=== PATIENT | female | born 1980 | race Caucasian/White ===

== ENCOUNTER 2017-02-18 16:38 | Inpatient (IN) | payer BC ==
[2017-02-18 20:34] LABS: HEMATOCRIT 20.6 % (36.0-47.0); MEAN CORPUSCULAR HEMOGLOBIN 15.3 pg (27.0-33.0); MEAN CORPUSCULAR HGB CONC 25.2 g/dl (32.0-36.5); MEAN CORPUSCULAR VOLUME 60.8 fl (80.0-96.0); PLATELET COUNT, AUTOMATED 393 10^3/uL (150-450); RED BLOOD COUNT 3.39 10^6/uL (4.00-5.40); RED CELL DISTRIBUTION WIDTH 21.9 % (11.5-14.5)
[2017-02-18 20:38] LABS: HEMOGLOBIN 5.2 g/dl (12.0-16.0); PLT DIST POS FLAG
[2017-02-18 21:29] LABS: RETIC HEMOGLOBIN EQUIVALENT 13.9 pg (24-36); RETICULOCYTE # 47.9 10^9/L (17-77); RETICULOCYTE % 1.4 % (0.5-1.5)
[2017-02-18 22:00] LABS: LDH LACTATE DEHYDROGENASE 227 U/L (84-246)
[2017-02-18] MEDS: PARoxetine 20 MG TAB PO (23:02)
[2017-02-18] MEDS: FERROUS SULFATE 325MG TAB PO (23:02)
[2017-02-18] MEDS: CYANOCOBALAMIN 1,000 MCG/ML VIAL (J3420) IM (23:02)
[2017-02-19 00:50] LABS: IMMEDIATE SPIN CROSSMATCH 1 3
[2017-02-19] MEDS: diphenhydrAMINE INJ 50MG/ML VIAL (J1200) IV (01:24)
[2017-02-19] MEDS: ACETAMINOPHEN 500 MG TAB PO (03:06)
[2017-02-19 06:50] LABS: HEMATOCRIT 22.1 % (36.0-47.0); MEAN CORPUSCULAR HGB CONC 27.6 g/dl (32.0-36.5); MEAN CORPUSCULAR VOLUME 65.4 fl (80.0-96.0); RED BLOOD COUNT 3.38 10^6/uL (4.00-5.40); RED CELL DISTRIBUTION WIDTH 26.2 % (11.5-14.5); WHITE BLOOD COUNT 4.3 10^3/uL (4.0-10.0)
[2017-02-19 06:53] LABS: HEMOGLOBIN 6.1 g/dl (12.0-16.0); PLATELET COUNT, AUTOMATED 286 10^3/uL (150-450)
[2017-02-19 07:10] LABS: ANION GAP 5 MEQ/L (8-16); BLOOD UREA NITROGEN 16 MG/DL (7-18); CALCIUM LEVEL 8.1 MG/DL (8.5-10.1); CARBON DIOXIDE LEVEL 28 MEQ/L (21-32); CHLORIDE LEVEL 112 MEQ/L (98-107); CREATININE FOR GFR 0.61 MG/DL (0.55-1.02); GLOMERULAR FILTRATION RATE > 60.0 (>60); GLUCOSE, FASTING 87 MG/DL (70-105); POTASSIUM SERUM 4.3 MEQ/L (3.5-5.1); SODIUM LEVEL 145 MEQ/L (136-145)
[2017-02-19 15:08] LABS: IMMEDIATE SPIN CROSSMATCH 1 2
[2017-02-19 19:16] LABS: HEMATOCRIT 26.8 % (36.0-47.0); HEMOGLOBIN 7.5 g/dl (12.0-16.0); MEAN CORPUSCULAR HEMOGLOBIN 19.3 pg (27.0-33.0); MEAN CORPUSCULAR VOLUME 69.1 fl (80.0-96.0); PLATELET COUNT, AUTOMATED 278 10^3/uL (150-450); RED BLOOD COUNT 3.88 10^6/uL (4.00-5.40); RED CELL DISTRIBUTION WIDTH 27.2 % (11.5-14.5)
[2017-02-19] MEDS: PARoxetine 20 MG TAB PO (20:50)
[2017-02-19 21:32] LABS: IMMEDIATE SPIN CROSSMATCH 1 1
[2017-02-20 06:48] LABS: HEMATOCRIT 27.4 % (36.0-47.0); HEMOGLOBIN 7.9 g/dl (12.0-16.0); MEAN CORPUSCULAR HGB CONC 28.8 g/dl (32.0-36.5); MEAN CORPUSCULAR VOLUME 69.4 fl (80.0-96.0); PLATELET COUNT, AUTOMATED 261 10^3/uL (150-450); RED BLOOD COUNT 3.95 10^6/uL (4.00-5.40); RED CELL DISTRIBUTION WIDTH 26.5 % (11.5-14.5); WHITE BLOOD COUNT 4.7 10^3/uL (4.0-10.0)
[2017-02-20 07:03] LABS: ANION GAP 5 MEQ/L (8-16); BLOOD UREA NITROGEN 16 MG/DL (7-18); CALCIUM LEVEL 8.1 MG/DL (8.5-10.1); CARBON DIOXIDE LEVEL 28 MEQ/L (21-32); CHLORIDE LEVEL 112 MEQ/L (98-107); GLOMERULAR FILTRATION RATE > 60.0 (>60); GLUCOSE, FASTING 93 MG/DL (70-105); SODIUM LEVEL 145 MEQ/L (136-145)
[2017-02-20] MEDS: FERROUS SULFATE 325MG TAB PO (08:01)
[2017-02-20 08:06] LABS: HAPTOGLOBIN 104 mg/dL (34-200)
[2017-02-20 09:28] LABS: ALBUMIN 3.6 GM/DL (3.2-5.2); ALBUMIN/GLOBULIN RATIO 1.33 (1.00-1.93); ALKALINE PHOSPHATASE 43 U/L (45-117); ALT/SGPT 22 U/L (12-78); AST/SGOT 20 U/L (7-37); BILIRUBIN,DIRECT 0.1 MG/DL (0.0-0.2); BILIRUBIN,TOTAL 0.5 MG/DL (0.2-1.0); TOTAL PROTEIN 6.3 GM/DL (6.4-8.2)
[2017-02-20] MEDS: CYANOCOBALAMIN 1,000 MCG/ML VIAL (J3420) IM (09:38)
[2017-02-20 10:35] LABS: IMMEDIATE SPIN CROSSMATCH 1 1
[2017-02-20] MEDS: IRON SUCROSE 200 MG in NS 100 ML IV (13:09)
== END 2017-02-20 15:28 | disposition home or self-care (01) | DRG 663 ==
LOC: M ED 16:38 → M ED INP 20:11 → M MSPAV 21:37
PROVIDERS: Internal Medicine
PROC: 30233N1 Transfusion of Nonautologous Red Blood Cells into Peripheral Vein, Percutaneous Approach (ICD-10-PCS; principal; 2017-02-18)
DX: D50.9 Iron deficiency anemia, unspecified (principal); E53.8 Deficiency of other specified B group vitamins; G60.0 Hereditary motor and sensory neuropathy; E55.9 Vitamin D deficiency, unspecified; N93.8 Other specified abnormal uterine and vaginal bleeding; Z79.899 Other long term (current) drug therapy; F17.210 Nicotine dependence, cigarettes, uncomplicated; Z91.19 Patient's noncompliance with other medical treatment and regimen; N92.0 Excessive and frequent menstruation with regular cycle

== ENCOUNTER → 2017-02-18 | Outpatient (REF) | payer BC ==
[2017-02-18 12:46] LABS: BASO % 1.1 % (0.0-1.0); EOS # 0.2 10^3/uL (0.0-0.50); HEMATOCRIT 18.8 % (36.0-47.0); IMMATURE GRANULOCYTE % 0.4 % (0-0); LYMPH # 0.8 10^3/uL (1.5-4.5); LYMPH % 30.6 % (24.0-44.0); MEAN CORPUSCULAR HEMOGLOBIN 15.3 pg (27.0-33.0); MEAN CORPUSCULAR VOLUME 61.2 fl (80.0-96.0); MONO # 0.3 10^3/uL (0.0-0.8); MONO % 10.3 % (0.0-5.0); NEUTROPHILS # 1.4 10^3/uL (1.8-7.7); NEUTROPHILS % 50.6 % (36.0-66.0); PLATELET COUNT, AUTOMATED 323 10^3/uL (150-450); RED BLOOD COUNT 3.07 10^6/uL (4.00-5.40); RED CELL DISTRIBUTION WIDTH 21.7 % (11.5-14.5); WHITE BLOOD COUNT 2.7 10^3/uL (4.0-10.0)
[2017-02-18 13:05] LABS: FOLATE 22.7 NG/ML; TOTAL 25(OH) VITAMIN D 18.8 NG/ML (30.0-100.0); VITAMIN B12 LEVEL 229 PG/ML
[2017-02-18 13:10] LABS: ALBUMIN 3.9 GM/DL (3.2-5.2); ALBUMIN/GLOBULIN RATIO 1.34 (1.00-1.93); ALKALINE PHOSPHATASE 44 U/L (45-117); ALT/SGPT 22 U/L (12-78); ANION GAP 6 MEQ/L (8-16); AST/SGOT 19 U/L (7-37); BILIRUBIN,TOTAL 0.2 MG/DL (0.2-1.0); BLOOD UREA NITROGEN 20 MG/DL (7-18); CALCIUM LEVEL 8.2 MG/DL (8.5-10.1); CARBON DIOXIDE LEVEL 28 MEQ/L (21-32); CHLORIDE LEVEL 106 MEQ/L (98-107); CHOLESTEROL LEVEL 148 MG/DL (<200); CHOLESTEROL RISK RATIO 2.208 (<5); CREATININE FOR GFR 0.57 MG/DL (0.55-1.02); FERRITIN 1 NG/ML (8-252); FREE T4 0.79 NG/DL (0.76-1.46); GLOMERULAR FILTRATION RATE > 60.0 (>60); GLUCOSE, FASTING 79 MG/DL (70-105); HDL CHOLESTEROL 67 MG/DL (>40); IRON (FE) 13 UG/DL (50-170); LDL CHOLESTEROL 68.4 MG/DL (<100); NON-HDL-C 81 MG/DL; PERCENT SATURATION 2.8 % (13.2-45.0); SODIUM LEVEL 140 MEQ/L (136-145); TOTAL IRON BINDING CAPACITY 462 UG/DL (250-450); TOTAL PROTEIN 6.8 GM/DL (6.4-8.2); TRIGLYCERIDES LEVEL 63 MG/DL (<150)
[2017-02-18 13:13] LABS: HEMOGLOBIN 4.7 g/dl (12.0-16.0); PLT DIST POS FLAG; POSITIVE MORPH POS FLAG
[2017-02-18 13:16] LABS: HEMATOCRIT 18.8 % (36.0-47.0)
[2017-02-20 11:37] LABS: PRETREATED FOLATE FOR RBCFOL 11.2 NG/ML; RBC FOLATE 1251.1 NG/ML (280-791)
[2017-02-23 14:11] LABS: VITAMIN B1 LEVEL WHOLE BLOOD 122.4 nmol/L (66.5-200.0)
== END ==
LOC: M LABDRWAD 12:12
DX: Z98.84 Bariatric surgery status (principal)
CPT/HCPCS: 82746

== ENCOUNTER → 2017-03-05 | Outpatient (REF) | payer BC ==
[2017-03-05 19:11] LABS: BASO # 0.1 10^3/uL (0.0-0.2); BASO % 1.3 % (0.0-1.0); EOS # 0.2 10^3/uL (0.0-0.50); EOS % 4.3 % (0.0-3.0); HEMATOCRIT 38.7 % (36.0-47.0); HEMOGLOBIN 11.1 g/dl (12.0-16.0); IMMATURE GRANULOCYTE % 0.3 % (0-0); LYMPH # 0.9 10^3/uL (1.5-4.5); LYMPH % 21.9 % (24.0-44.0); MEAN CORPUSCULAR HEMOGLOBIN 22.5 pg (27.0-33.0); MEAN CORPUSCULAR HGB CONC 28.7 g/dl (32.0-36.5); MEAN CORPUSCULAR VOLUME 78.5 fl (80.0-96.0); MONO # 0.8 10^3/uL (0.0-0.8); MONO % 19.6 % (0.0-5.0); NEUTROPHILS # 2.1 10^3/uL (1.8-7.7); NEUTROPHILS % 52.6 % (36.0-66.0); PLATELET COUNT, AUTOMATED 174 10^3/uL (150-450); RED BLOOD COUNT 4.93 10^6/uL (4.00-5.40)
[2017-03-05 19:26] LABS: POSITIVE MORPH POS FLAG
[2017-03-05 19:27] LABS: ADD MORPHOLOGY? YES; PLATELET ESTIMATE NORMAL (NORMAL)
[2017-03-05 19:28] LABS: OVALOCYTES 2+
[2017-03-05 19:29] LABS: TEAR DROP CELLS 1+
[2017-03-05 19:30] LABS: ANISOCYTOSIS 2+; HYPOCHROMASIA 1+
== END ==
LOC: M LABDRWAD 18:56
DX: D50.9 Iron deficiency anemia, unspecified (principal)
CPT/HCPCS: 85025

== ENCOUNTER → 2017-03-06 | Outpatient (REF) | payer BC ==
[2017-03-06 21:36] LABS: BASO % 1.1 % (0.0-1.0); EOS # 0.2 10^3/uL (0.0-0.50); EOS % 7.6 % (0.0-3.0); HEMATOCRIT 39.4 % (36.0-47.0); HEMOGLOBIN 11.4 g/dl (12.0-16.0); LYMPH % 34.5 % (24.0-44.0); MEAN CORPUSCULAR HEMOGLOBIN 22.9 pg (27.0-33.0); MEAN CORPUSCULAR HGB CONC 28.9 g/dl (32.0-36.5); MEAN CORPUSCULAR VOLUME 79.1 fl (80.0-96.0); MONO # 0.3 10^3/uL (0.0-0.8); NEUTROPHILS # 1.2 10^3/uL (1.8-7.7); NEUTROPHILS % 44.8 % (36.0-66.0); PLATELET COUNT, AUTOMATED 201 10^3/uL (150-450); RED BLOOD COUNT 4.98 10^6/uL (4.00-5.40); WHITE BLOOD COUNT 2.8 10^3/uL (4.0-10.0)
[2017-03-06 21:50] LABS: BLOOD UREA NITROGEN 18 MG/DL (7-18)
[2017-03-06 21:50] LABS: C REACTIVE PROTEIN QUANTITATIV < 0.30 MG/DL (0.00-0.30); CREATININE FOR GFR 0.68 MG/DL (0.55-1.02); GLOMERULAR FILTRATION RATE > 60.0 (>60); RHEUMATOID FACTOR QUANT < 10.0 IU/ML (0-15.0)
[2017-03-06 21:53] LABS: POSITIVE MORPH POS FLAG
[2017-03-06 21:55] LABS: ADD MORPHOLOGY? YES
[2017-03-06 22:09] LABS: ERYTHROCYTE SEDIMENTATION RATE 7 mm/hr (0-20)
[2017-03-06 22:24] LABS: ANISOCYTOSIS 2+; HYPOCHROMASIA 1+; OVALOCYTES 1+; PLATELET ESTIMATE NORMAL (NORMAL); TEAR DROP CELLS 1+
[2017-03-11 00:06] LABS: ANTINUCLEAR ANTIBODIES DIRECT Negative (Negative); Lyme Disease IgG/IgM Antibodie <0.91 ISR (0.00-0.90); Lyme Disease IgM Ab Quantitati <0.80 index (0.00-0.79)
== END ==
LOC: M LAB 03-07 12:31
DX: R22.42 Localized swelling, mass and lump, left lower limb (principal)
CPT/HCPCS: 82565

== ENCOUNTER → 2017-03-16 | Outpatient (CLI) | payer BC | LOC: M RAD 10:22 | DX: R22.42 Localized swelling, mass and lump, left lower limb (principal) ==

== ENCOUNTER → 2017-03-19 | Outpatient (CLI) | payer BC ==
[~2017-03-19] MED LIST: PROHANCE 279.3MG/ML 15ML VIAL (A9576) As Ordered; PROHANCE 279.3MG/ML 5ML VIAL (A9576) As Ordered
== END ==
LOC: M RAD 07:44
DX: M62.561 Muscle wasting and atrophy, not elsewhere classified, right lower leg (principal); M62.562 Muscle wasting and atrophy, not elsewhere classified, left lower leg; M17.11 Unilateral primary osteoarthritis, right knee; M25.461 Effusion, right knee; M25.462 Effusion, left knee; R60.0 Localized edema
CPT/HCPCS: A9576

== ENCOUNTER → 2017-03-27 | Day surgery (SDC) | payer BC ==
[~2017-03-27] MED LIST changes: +HYDROmorphone HCL 1 MG/ML SYRINGE (J1170) IV; +LIDOCAINE 2% INJ 100 MG/5 ML SDV (FOR ANES.) As Ordered; +LR 1,000 ML IV; +METOCLOPRAMIDE INJ 10MG/2ML VIAL (J2765) As Ordered; +MIDAZOLAM INJ 2 MG/2 ML VIAL (J2250) As Ordered; +ONDANSETRON 4MG/2ML VIAL (J2405) As Ordered; +PERCOCET 5MG/325MG TAB PO; -PROHANCE 279.3MG/ML 15ML VIAL (A9576) As Ordered; -PROHANCE 279.3MG/ML 5ML VIAL (A9576) As Ordered; +PROPOFOL 200 MG/20 ML VIAL As Ordered; +dexameTHASONE 4 MG/ML 1ML VIAL (J1100) As Ordered; +fentaNYL 100 MCG/2 ML INJECTION (J3010) As Ordered; +fentaNYL 100 MCG/2 ML INJECTION (J3010) IV
[2017-03-27 09:13] LABS: HEMATOCRIT 36.4 % (36.0-47.0); HEMOGLOBIN 11.1 g/dl (12.0-16.0); MEAN CORPUSCULAR HEMOGLOBIN 25.2 pg (27.0-33.0); MEAN CORPUSCULAR HGB CONC 30.5 g/dl (32.0-36.5); MEAN CORPUSCULAR VOLUME 82.5 fl (80.0-96.0); PLATELET COUNT, AUTOMATED 208 10^3/uL (150-450); RED BLOOD COUNT 4.41 10^6/uL (4.00-5.40); WHITE BLOOD COUNT 4.9 10^3/uL (4.0-10.0)
[2017-03-27 09:18] LABS: POSITIVE MORPH POS FLAG
[2017-03-27] MEDS: LR 1,000 ML IV ×2 (09:24)
[2017-03-27 09:32] LABS: CONTROL LINE HCG INT CTR LINE PRESENT; HCG, SERUM QUALITATIVE NEGATIVE (NEGATIVE)
[2017-03-27 09:37] LABS: ANION GAP 2 MEQ/L (8-16); BLOOD UREA NITROGEN 18 MG/DL (7-18); CALCIUM LEVEL 8.5 MG/DL (8.5-10.1); CARBON DIOXIDE LEVEL 32 MEQ/L (21-32); CHLORIDE LEVEL 109 MEQ/L (98-107); CREATININE FOR GFR 0.62 MG/DL (0.55-1.30); GLOMERULAR FILTRATION RATE > 60.0 (>60); GLUCOSE, FASTING 88 MG/DL (70-100); POTASSIUM SERUM 4.1 MEQ/L (3.5-5.1); SODIUM LEVEL 143 MEQ/L (136-145)
[2017-03-27] MEDS: ACETAMINOPHEN 650 MG SUPP PR ×2 (10:20)
[2017-03-27] MEDS: ACETAMINOPHEN 650 MG SUPP As Ordered ×2 (10:52)
[2017-03-27] MEDS: ONDANSETRON 4MG/2ML VIAL (J2405) IV ×2 (11:17)
[2017-03-27] MEDS: PERCOCET 5MG/325MG TAB PO ×2 (11:17)
== END | disposition home or self-care (01) ==
LOC: M SDC 08:49
DX: N92.0 Excessive and frequent menstruation with regular cycle (principal); D64.9 Anemia, unspecified; F32.9 Major depressive disorder, single episode, unspecified; Z87.891 Personal history of nicotine dependence; Z98.84 Bariatric surgery status
CPT/HCPCS: 58563

== ENCOUNTER → 2018-05-15 | Outpatient (REF) | payer BC ==
[~2018-05-15] MED LIST changes: +B121000T PO; +COLA100C5 PO; +FERR1TAB8 PO; +FOLI1TAB11 PO; -HYDROmorphone HCL 1 MG/ML SYRINGE (J1170) IV; -LIDOCAINE 2% INJ 100 MG/5 ML SDV (FOR ANES.) As Ordered; -LR 1,000 ML IV; -METOCLOPRAMIDE INJ 10MG/2ML VIAL (J2765) As Ordered; -MIDAZOLAM INJ 2 MG/2 ML VIAL (J2250) As Ordered; +MOTRIN 800 MG PO; -ONDANSETRON 4MG/2ML VIAL (J2405) As Ordered; +PAXI10TA12 PO; +PAXI40TA10 PO; +PERC5TAB12 PO; -PERCOCET 5MG/325MG TAB PO; +PERCOCET PO; -PROPOFOL 200 MG/20 ML VIAL As Ordered; +TRAN650T PO; +VITA500C24 PO; +VITAPRTA PO; -dexameTHASONE 4 MG/ML 1ML VIAL (J1100) As Ordered; -fentaNYL 100 MCG/2 ML INJECTION (J3010) As Ordered; -fentaNYL 100 MCG/2 ML INJECTION (J3010) IV
[2018-05-15 19:39] LABS: EOS # 0.2 10^3/uL (0.0-0.50); EOS % 5.3 % (0.0-3.0); HEMATOCRIT 39.5 % (36.0-47.0); HEMOGLOBIN 12.8 g/dl (12.0-15.5); LYMPH # 1.1 10^3/uL (1.5-4.5); LYMPH % 28.5 % (24.0-44.0); MEAN CORPUSCULAR HEMOGLOBIN 30.5 pg (27.0-33.0); MEAN CORPUSCULAR HGB CONC 32.4 g/dl (32.0-36.5); MEAN CORPUSCULAR VOLUME 94.3 fl (80.0-96.0); MONO # 0.3 10^3/uL (0.0-0.8); MONO % 8.5 % (0.0-5.0); NEUTROPHILS # 2.3 10^3/uL (1.8-7.7); NEUTROPHILS % 56.7 % (36.0-66.0); PLATELET COUNT, AUTOMATED 216 10^3/uL (150-450); RED BLOOD COUNT 4.19 10^6/uL (4.00-5.40)
[2018-05-15 19:48] LABS: ALBUMIN 3.8 GM/DL (3.2-5.2); ALT/SGPT 34 U/L (12-78); BILIRUBIN,TOTAL 0.4 MG/DL (0.2-1.0); BLOOD UREA NITROGEN 17 MG/DL (7-18); CALCIUM LEVEL 8.2 MG/DL (8.5-10.1); CARBON DIOXIDE LEVEL 28 MEQ/L (21-32); CHLORIDE LEVEL 109 MEQ/L (98-107); CHOLESTEROL LEVEL 143 MG/DL (<200); CHOLESTEROL RISK RATIO 2.423 (<5); CREATININE FOR GFR 0.62 MG/DL (0.55-1.30); FERRITIN 11 NG/ML (8-252); GLOMERULAR FILTRATION RATE > 60.0 (>60); GLUCOSE, FASTING 82 MG/DL (70-100); HDL CHOLESTEROL 59 MG/DL (>40); IRON (FE) 97 UG/DL (50-170); LDL CHOLESTEROL 74 MG/DL (<100); NON-HDL-C 84 MG/DL; PERCENT SATURATION 31.8 % (13.2-45.0); POTASSIUM SERUM 4.1 MEQ/L (3.5-5.1); SODIUM LEVEL 143 MEQ/L (136-145); TOTAL IRON BINDING CAPACITY 305 UG/DL (250-450); TOTAL PROTEIN 6.8 GM/DL (6.4-8.2); TRIGLYCERIDES LEVEL 48 MG/DL (<150)
[2018-05-17 09:27] LABS: TOTAL 25(OH) VITAMIN D 25.1 NG/ML (30.0-100.0)
[2018-05-17 09:28] LABS: FOLATE 15.4 NG/ML
[2018-05-18 14:13] LABS: VITAMIN B12 LEVEL 240 PG/ML
[2018-05-21 00:07] LABS: VITAMIN A, RETINOL LEVEL 31.9 ug/dL (18.9-57.3); VITAMIN B1 LEVEL WHOLE BLOOD 142.7 nmol/L (66.5-200.0)
== END ==
LOC: M LABDRWAD 09:22
PROVIDERS: ATTEND Physician Assistant Medical
DX: D50.9 Iron deficiency anemia, unspecified (principal); Z98.84 Bariatric surgery status; E55.9 Vitamin D deficiency, unspecified

== ENCOUNTER → 2018-06-09 | Outpatient (REF) | payer BC ==
[2018-06-09 20:30] LABS: FREE T4 0.73 NG/DL (0.76-1.46); THYROID STIMULATING HORMONE 2.37 uIU/ML (0.358-3.740)
== END ==
LOC: M LAB REF 19:16 → M LABDRWAD 19:16
PROVIDERS: ATTEND Physician Assistant Medical
DX: R63.5 Abnormal weight gain (principal)

== ENCOUNTER → 2018-07-13 | Outpatient (CLI) | payer BC ==
[~2018-07-13] MED LIST changes: +GASTROGRAFIN SOLUTION 30ML (Q9963) As Ordered ONE; +ISOVUE-370 76% 100ML VIAL (Q9967) As Ordered ONE
--- NOTE | 2018-07-13 15:21 | REP ---
CT abdomen with IV and oral contrast: History: Abnormal finding on PET-CT. Question bowel. History of bariatric surgery. Weight gain. Gastroesophageal reflux disease. CT contrast dose: 75 ml of intravenous Isovue [address] findings: Preliminary digital crown attacher radiograph is unremarkable. The lung bases are clear on axial CT images. Gastric bypass sutures are visible in the left upper abdomen. No focal hepatic or splenic lesion is seen. No abnormalities noted in the gallbladder or pancreas. There is a tiny accessory splenule. No adrenal abnormality is observed on either side. The kidneys enhance symmetrically and are morphologically intact. No retroperitoneal mass or adenopathy is observed. Small and large intestinal bowel loops are unremarkable in the abdomen and pelvis. There is no evidence of free air, pneumatosis, or mural thickening. No abdominal wall defect is observed. No retroperitoneal mass or adenopathy is observed. No vascular abnormality is seen. Bone window settings show no bony destructive lesion. Impression: Unremarkable CT study of the abdomen with IV and oral contrast. The patient status post gastric bypass procedure. Electronically Signed by Merlin Ellis MD 07/13/2018 04:18 P
== END ==
LOC: M RAD 12:05
PROVIDERS: ATTEND Physician Assistant
DX: R63.5 Abnormal weight gain (principal); K21.9 Gastro-esophageal reflux disease without esophagitis; Z98.84 Bariatric surgery status
CPT/HCPCS: 74160; Q9963; Q9967

== ENCOUNTER → 2018-08-04 | Outpatient (CLI) | payer BC ==
[~2018-08-04] MED LIST changes: -GASTROGRAFIN SOLUTION 30ML (Q9963) As Ordered ONE; -ISOVUE-370 76% 100ML VIAL (Q9967) As Ordered ONE
--- NOTE | 2018-08-04 10:22 | REP ---
Chest x-ray: Two views. History: Necrobiosis lipoidica. Comparison study: February 26, 2007. Findings: The lungs are well inflated and free of infiltrate. The pleural angles are sharp. The heart size is normal. Pulmonary vasculature is not increased. No significant bony abnormality is seen. There are surgical clips in the left upper quadrant. Impression: Negative chest x-ray. Electronically Signed by Merlin Ellis MD 08/04/2018 10:13 A
== END ==
LOC: M ADAMS 08:00
PROVIDERS: ATTEND Nurse Practitioner Family
DX: L92.1 Necrobiosis lipoidica, not elsewhere classified (principal)

== ENCOUNTER → 2018-08-04 | Outpatient (CLI) | payer BC ==
[2018-08-04 13:26] LABS: HEMOGLOBIN A1c 5.3 %
== END ==
LOC: M LABDRWAD 08:21
PROVIDERS: ATTEND Nurse Practitioner Family
DX: L92.1 Necrobiosis lipoidica, not elsewhere classified (principal)

== ENCOUNTER 2018-10-25 00:30 | Emergency (ER) | payer BC ==
[~2018-10-25] VITALS: Ht 157.5 cm; Wt 97.3 kg
[2018-10-25] MEDS ORDERED: PROTPAK PO (00:49)
[2018-10-25] MEDS: NS 1,000 ML IV ONE (01:18)
[2018-10-25 01:28] LABS: BASO % 0.3 % (0.0-1.0); EOS # 0.1 10^3/uL (0.0-0.5); EOS % 0.5 % (0.0-3.0); HEMATOCRIT 41.7 % (36.0-47.0); HEMOGLOBIN 13.8 g/dl (12.0-15.5); LYMPH # 0.4 10^3/uL (1.5-5.0); LYMPH % 3.3 % (24.0-44.0); MEAN CORPUSCULAR HEMOGLOBIN 31.3 pg (27.0-33.0); MEAN CORPUSCULAR HGB CONC 33.1 g/dl (32.0-36.5); MEAN CORPUSCULAR VOLUME 94.6 fl (80.0-96.0); MONO # 0.6 10^3/uL (0.0-0.8); NEUTROPHILS % 90.6 % (36.0-66.0); PLATELET COUNT, AUTOMATED 143 10^3/uL (150-450); RED BLOOD COUNT 4.41 10^6/uL (4.00-5.40); WHITE BLOOD COUNT 11.1 10^3/uL (4.0-10.0)
[2018-10-25] MEDS: ONDANSETRON 4MG/2ML VIAL (J2405) IV ONE (01:47)
[2018-10-25] MEDS: GI COCKTAIL 50ML BTL(HYOSCYAMINE/MAALOX/LIDOCAINE VISCOUS)(1:3:1) PO ONE (01:47)
[2018-10-25] MEDS: ACETAMINOPHEN 500 MG TAB PO ONE (01:47)
[2018-10-25 01:53] LABS: ALBUMIN 3.9 GM/DL (3.2-5.2); ALT/SGPT 21 U/L (12-78); BILIRUBIN,DIRECT 0.2 MG/DL (0.0-0.2); BILIRUBIN,TOTAL 0.5 MG/DL (0.2-1.0); BLOOD UREA NITROGEN 19 MG/DL (7-18); CALCIUM LEVEL 8.4 MG/DL (8.5-10.1); CARBON DIOXIDE LEVEL 20 MEQ/L (21-32); CHLORIDE LEVEL 112 MEQ/L (98-107); CREATININE FOR GFR 0.69 MG/DL (0.55-1.30); GLOMERULAR FILTRATION RATE > 60.0 (>60); GLUCOSE, FASTING 125 MG/DL (70-100); LIPASE 156 U/L (73-393); POTASSIUM SERUM 3.7 MEQ/L (3.5-5.1); SODIUM LEVEL 142 MEQ/L (136-145); TOTAL PROTEIN 7.1 GM/DL (6.4-8.2)
[2018-10-25] MEDS ORDERED: REGL10TA6 PO (02:27)
[2018-10-25] MEDS ORDERED: DICY10CA13 PO (02:27)
[2018-10-25 04:31] VITALS: BP 141/71
--- NOTE | 2018-10-26 07:05 | ECGEPIP ---
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
== END 2018-10-25 04:54 | disposition home or self-care (01) ==
LOC: M ED 00:30
DX: S00.83XA Contusion of other part of head, initial encounter (principal); S02.5XXA Fracture of tooth (traumatic), initial encounter for closed fracture; W19.XXXA Unspecified fall, initial encounter; Y92.9 Unspecified place or not applicable; M62.50 Muscle wasting and atrophy, not elsewhere classified, unspecified site; R10.13 Epigastric pain; R55 Syncope and collapse; K31.9 Disease of stomach and duodenum, unspecified; Z98.84 Bariatric surgery status
CPT/HCPCS: 80048; 80076; 81001; 83690; 84702; 85025; 93005; 96374; 99285; J2405

== ENCOUNTER → 2020-04-05 | Outpatient (REF) | payer BC ==
[~2020-04-05] MED LIST changes: +DICY10CA13 PO; +PROTPAK PO; +REGL10TA6 PO
[2020-04-05 17:34] LABS: BASO % 0.8 % (0.0-1.0); EOS # 0.2 10^3/uL (0.0-0.5); EOS % 3.9 % (0.0-3.0); HEMATOCRIT 37.9 % (36.0-47.0); LYMPH # 1.5 10^3/uL (1.5-5.0); LYMPH % 28.7 % (24.0-44.0); MEAN CORPUSCULAR HEMOGLOBIN 29.2 pg (27.0-33.0); MEAN CORPUSCULAR HGB CONC 31.7 g/dl (32.0-36.5); MEAN CORPUSCULAR VOLUME 92.2 fl (80.0-96.0); MONO # 0.3 10^3/uL (0.0-0.8); MONO % 6.1 % (2.0-8.0); NEUTROPHILS # 3.1 10^3/uL (1.5-8.5); NEUTROPHILS % 60.3 % (36.0-66.0); PLATELET COUNT, AUTOMATED 231 10^3/uL (150-450); RED BLOOD COUNT 4.11 10^6/uL (4.00-5.40); WHITE BLOOD COUNT 5.1 10^3/uL (4.0-10.0)
[2020-04-05 17:50] LABS: BLOOD UREA NITROGEN 13 MG/DL (7-18); CALCIUM LEVEL 8.9 MG/DL (8.5-10.1); CARBON DIOXIDE LEVEL 28 MEQ/L (21-32); CHLORIDE LEVEL 108 MEQ/L (98-107); GLOMERULAR FILTRATION RATE > 60.0 (>60); GLUCOSE, FASTING 113 MG/DL (70-100); IRON (FE) 94 UG/DL (50-170); PERCENT SATURATION 27.2 % (13.2-45.0); POTASSIUM SERUM 4.3 MEQ/L (3.5-5.1); SODIUM LEVEL 141 MEQ/L (136-145); TOTAL IRON BINDING CAPACITY 345 UG/DL (250-450)
[2020-04-05 18:00] LABS: TOTAL 25(OH) VITAMIN D 29.6 NG/ML (30.0-100.0); VITAMIN B12 LEVEL 240 PG/ML
[2020-04-05 18:01] LABS: FOLATE 8.7 NG/ML
== END ==
LOC: M LABDRWAD 16:33
PROVIDERS: ATTEND Physician Assistant Medical
DX: Z98.84 Bariatric surgery status (principal)

== ENCOUNTER → 2020-06-27 | Outpatient (REF) | payer MEDICARE, MEDICAID ==
[2020-06-27 17:01] LABS: ALT/SGPT 23 U/L (12-78); BILIRUBIN,DIRECT < 0.1 MG/DL (0.0-0.2); BILIRUBIN,TOTAL 0.3 MG/DL (0.2-1.0)
== END ==
LOC: M LABDRWAD 16:06
DX: B35.1 Tinea unguium (principal); Z79.899 Other long term (current) drug therapy

== ENCOUNTER → 2020-11-19 | Outpatient (REF) | payer MEDICARE, MEDICAID ==
[2020-11-19 20:58] LABS: GC DNA AMPLIFICATION NEGATIVE (NEGATIVE)
== END ==
LOC: M LAB REF 17:18
PROVIDERS: ATTEND Nurse Practitioner Family
DX: Z01.419 Encounter for gynecological examination (general) (routine) without abnormal findings (principal)
CPT/HCPCS: 87070; 87077; 87491; 87591; 87624; G0123

== ENCOUNTER → 2020-12-19 | Outpatient (REF) | payer MEDICARE, MEDICAID ==
[2020-12-19 21:21] LABS: GC DNA AMPLIFICATION NEGATIVE (NEGATIVE)
== END ==
LOC: M LAB REF 16:31
PROVIDERS: ATTEND Nurse Practitioner Family
DX: A56.02 Chlamydial vulvovaginitis (principal)

== ENCOUNTER → 2021-02-22 | Outpatient (CLI) | payer MEDICARE, MEDICAID | LOC: M WHC 15:10 | PROVIDERS: ATTEND Nurse Practitioner Family | DX: Z12.31 Encounter for screening mammogram for malignant neoplasm of breast (principal) ==

== ENCOUNTER → 2021-04-25 | Outpatient (CLI) | payer MEDICARE, MEDICAID ==
[2021-04-25 13:28] LABS: BASO # 0.1 10^3/uL (0.0-0.2); BASO % 1.2 % (0.0-1.0); EOS # 0.2 10^3/uL (0.0-0.5); EOS % 4.1 % (0.0-3.0); HEMATOCRIT 36.3 % (36.0-47.0); HEMOGLOBIN 11.7 g/dl (12.0-15.5); LYMPH % 24.5 % (24.0-44.0); MEAN CORPUSCULAR HEMOGLOBIN 28.1 pg (27.0-33.0); MEAN CORPUSCULAR HGB CONC 32.2 g/dl (32.0-36.5); MEAN CORPUSCULAR VOLUME 87.1 fl (80.0-96.0); MONO # 0.4 10^3/uL (0.0-0.8); MONO % 10.4 % (2.0-8.0); NEUTROPHILS # 2.5 10^3/uL (1.5-8.5); NEUTROPHILS % 59.6 % (36.0-66.0); PLATELET COUNT, AUTOMATED 210 10^3/uL (150-450); RED BLOOD COUNT 4.17 10^6/uL (4.00-5.40); WHITE BLOOD COUNT 4.1 10^3/uL (4.0-10.0)
[2021-04-25 13:58] LABS: ALBUMIN 3.7 GM/DL (3.2-5.2); ALT/SGPT 29 U/L (12-78); BILIRUBIN,TOTAL 0.4 MG/DL (0.2-1.0); BLOOD UREA NITROGEN 14 MG/DL (7-18); CALCIUM LEVEL 8.8 MG/DL (8.5-10.1); CARBON DIOXIDE LEVEL 29 MEQ/L (21-32); CHLORIDE LEVEL 107 MEQ/L (98-107); CHOLESTEROL LEVEL 156 MG/DL (<200); CREATININE FOR GFR 0.62 MG/DL (0.55-1.30); FREE T4 0.91 NG/DL (0.76-1.46); GLOMERULAR FILTRATION RATE > 60.0 (>58); GLUCOSE, FASTING 81 MG/DL (70-100); HDL CHOLESTEROL 69 MG/DL (>40); IRON (FE) 36 UG/DL (50-170); LDL CHOLESTEROL 79 MG/DL (<100); NON-HDL-C 87 MG/DL; PERCENT SATURATION 9.6 % (13.2-45.0); POTASSIUM SERUM 4.4 MEQ/L (3.5-5.1); SODIUM LEVEL 141 MEQ/L (136-145); TOTAL IRON BINDING CAPACITY 376 UG/DL (250-450); TOTAL PROTEIN 6.8 GM/DL (6.4-8.2); TRIGLYCERIDES LEVEL 39 MG/DL (<150)
[2021-04-25 13:59] LABS: LUTEINIZING HORMONE 5.7 mIU/mL; PROLACTIN 4.1 NG/ML; TOTAL 25(OH) VITAMIN D 23.4 NG/ML (30.0-100.0)
[2021-04-25 14:00] LABS: FOLATE 15.3 NG/ML; FOLLICLE STIMULATING HORMONE 6.2 mIU/mL; VITAMIN B12 LEVEL 317 PG/ML
[2021-04-25 14:14] LABS: HCG, SERUM QUALITATIVE NEGATIVE (NEGATIVE)
== END ==
LOC: M ADAMS 08:09
PROVIDERS: ATTEND Nurse Practitioner Family
DX: Z00.00 Encounter for general adult medical examination without abnormal findings (principal); N91.1 Secondary amenorrhea; Z98.84 Bariatric surgery status; D50.9 Iron deficiency anemia, unspecified; D51.9 Vitamin B12 deficiency anemia, unspecified; Z79.899 Other long term (current) drug therapy

== ENCOUNTER → 2021-07-22 | Outpatient (CLI) | payer MEDICARE, MEDICAID ==
[2021-07-23 12:43] LABS: BASO # 0.1 10^3/uL (0.0-0.2); BASO % 0.9 % (0.0-1.0); EOS # 0.2 10^3/uL (0.0-0.5); HEMATOCRIT 36.5 % (36.0-47.0); HEMOGLOBIN 11.9 g/dl (12.0-15.5); LYMPH # 1.5 10^3/uL (1.5-5.0); LYMPH % 26.2 % (24.0-44.0); MEAN CORPUSCULAR HEMOGLOBIN 29.8 pg (27.0-33.0); MEAN CORPUSCULAR HGB CONC 32.6 g/dl (32.0-36.5); MEAN CORPUSCULAR VOLUME 91.5 fl (80.0-96.0); MONO # 0.5 10^3/uL (0.0-0.8); MONO % 8.6 % (2.0-8.0); NEUTROPHILS # 3.5 10^3/uL (1.5-8.5); NEUTROPHILS % 60.1 % (36.0-66.0); PLATELET COUNT, AUTOMATED 213 10^3/uL (150-450); RED BLOOD COUNT 3.99 10^6/uL (4.00-5.40); WHITE BLOOD COUNT 5.8 10^3/uL (4.0-10.0)
[2021-07-23 13:16] LABS: PERCENT SATURATION 19.7 % (13.2-45.0)
[2021-07-23 13:18] LABS: FOLATE 23.5 NG/ML
== END ==
LOC: M ADAMS 15:51
PROVIDERS: ATTEND Nurse Practitioner Family
DX: D50.9 Iron deficiency anemia, unspecified (principal); D51.9 Vitamin B12 deficiency anemia, unspecified

== ENCOUNTER → 2022-03-04 | Outpatient (CLI) | payer MEDICARE, MEDICAID ==
[~2022-03-04] MED LIST changes: -PAXI10TA12 PO; +PAXI10TA13 PO; -PAXI40TA10 PO; +PAXI40TA12 PO
[2022-03-04 13:31] LABS: BASO % 0.8 % (0.0-1.0); EOS # 0.3 10^3/uL (0.0-0.5); EOS % 6.1 % (0.0-3.0); HEMATOCRIT 36.4 % (36.0-47.0); HEMOGLOBIN 11.3 g/dl (12.0-15.5); LYMPH # 1.2 10^3/uL (1.5-5.0); LYMPH % 24.8 % (24.0-44.0); MEAN CORPUSCULAR HEMOGLOBIN 28.5 pg (27.0-33.0); MEAN CORPUSCULAR VOLUME 91.9 fl (80.0-96.0); MONO # 0.4 10^3/uL (0.0-0.8); MONO % 8.4 % (2.0-8.0); NEUTROPHILS # 2.8 10^3/uL (1.5-8.5); NEUTROPHILS % 59.5 % (36.0-66.0); PLATELET COUNT, AUTOMATED 227 10^3/uL (150-450); RED BLOOD COUNT 3.96 10^6/uL (4.00-5.40); WHITE BLOOD COUNT 4.8 10^3/uL (4.0-10.0)
[2022-03-04 13:36] LABS: FREE T4 0.77 NG/DL (0.89-1.76); MAGNESIUM LEVEL 1.7 MG/DL (1.8-2.4); TOTAL IRON BINDING CAPACITY 374 UG/DL (250-425); VITAMIN B12 LEVEL 305 PG/ML (211-911)
[2022-03-04 13:37] LABS: THYROID STIMULATING HORMONE 1.181 uIU/ML (0.55-4.78)
[2022-03-04 13:38] LABS: FERRITIN 4.6 NG/ML (7.3-270.7); IRON (FE) 58 UG/DL (50-170); PERCENT SATURATION 15.5 % (13.2-45.0); TOTAL 25(OH) VITAMIN D 26.4 NG/ML (20.0-100.0)
[2022-03-04 13:40] LABS: HEMOGLOBIN A1c 4.8 % (4.0-6.0)
[2022-03-04 14:38] LABS: ALBUMIN 3.6 G/DL (3.2-5.2); ALKALINE PHOSPHATASE 45 U/L (46-116); ALT/SGPT 50 U/L (7.0-40); AST/SGOT 39 U/L (<34); BILIRUBIN,TOTAL 0.3 MG/DL (0.3-1.2); BLOOD UREA NITROGEN 17 MG/DL (9-23); CARBON DIOXIDE LEVEL 28 MMOL/L (20-31); CHLORIDE LEVEL 107 MMOL/L (98-107); CHOLESTEROL LEVEL 177 MG/DL (<200); CHOLESTEROL RISK RATIO 2.85 (<5); CREATININE FOR GFR 0.59 MG/DL (0.55-1.30); FOLATE 18.1 NG/ML (>5.4); GLOMERULAR FILTRATION RATE > 60.0 (>58); GLUCOSE, FASTING 94 MG/DL (60-100); HDL CHOLESTEROL 61.9 MG/DL (>40); LDL CHOLESTEROL 100.3 MG/DL (<100); NON-HDL-C 115 MG/DL; POTASSIUM SERUM 4.5 MMOL/L (3.5-5.1); SODIUM LEVEL 140 MMOL/L (136-145); TOTAL PROTEIN 6.3 G/DL (5.7-8.2); TRIGLYCERIDES LEVEL 74 MG/DL (<150)
== END ==
LOC: M PLALAB 09:28
PROVIDERS: ATTEND Nurse Practitioner Family
DX: R00.2 Palpitations (principal); E55.9 Vitamin D deficiency, unspecified; D51.9 Vitamin B12 deficiency anemia, unspecified; D50.9 Iron deficiency anemia, unspecified; Z98.84 Bariatric surgery status; Z79.899 Other long term (current) drug therapy

== ENCOUNTER → 2022-03-07 | Outpatient (REF) | payer MEDICARE, MEDICAID ==
[~2022-03-07] MED LIST changes: +FLUO10CA18 PO; +FLUO20CA22 PO; +GABA-282 PO; +IRON PLUS PO; +VITMTA PO
[2022-03-07 14:06] LABS: GC DNA AMPLIFICATION NEGATIVE (NEGATIVE)
== END ==
LOC: M LAB REF 11:17
PROVIDERS: ATTEND Nurse Practitioner Family
DX: Z01.419 Encounter for gynecological examination (general) (routine) without abnormal findings (principal); Z11.8 Encounter for screening for other infectious and parasitic diseases

== ENCOUNTER → 2022-03-07 | Outpatient (CLI) | payer MEDICARE, MEDICAID | LOC: M WHC 09:24 | PROVIDERS: ATTEND Nurse Practitioner Family | DX: Z12.31 Encounter for screening mammogram for malignant neoplasm of breast (principal) | CPT/HCPCS: 77063; 77067; 87624; 87661; 87810; 87850; G0123 ==

== ENCOUNTER 2022-05-28 13:03 | Day surgery (SDC) | payer MEDICAID, MEDICARE ==
[~2022-05-28] VITALS: Ht 170.2 cm; Wt 99.8 kg
[2022-05-28 13:41] LABS: HEMATOCRIT 39.1 % (36.0-47.0); HEMOGLOBIN 12.7 g/dl (12.0-15.5); MEAN CORPUSCULAR HEMOGLOBIN 30.4 pg (27.0-33.0); MEAN CORPUSCULAR HGB CONC 32.5 g/dl (32.0-36.5); MEAN CORPUSCULAR VOLUME 93.5 fl (80.0-96.0); PLATELET COUNT, AUTOMATED 221 10^3/uL (150-450); RED BLOOD COUNT 4.18 10^6/uL (4.00-5.40); WHITE BLOOD COUNT 5.3 10^3/uL (4.0-10.0)
[2022-05-28] MEDS ORDERED: LR 1,000 ML IV SCH (13:55)
[2022-05-28] MEDS ORDERED: IODINE STRONG SOLN 15ML BTL As Ordered ONE (14:32)
[2022-05-28] MEDS ORDERED: LIDOCAINE W/EPINEPHRINE 1% 20ML VIAL As Ordered ONE (14:32)
[2022-05-28] MEDS ORDERED: LIDOCAINE 2% 100MG/5ML SDV (FOR ANES.) As Ordered ONE (16:37)
[2022-05-28] MEDS ORDERED: propofoL 200 MG/20 ML VIAL As Ordered ONE (16:37)
[2022-05-28 17:50] VITALS: BP 116/61
== END 2022-05-28 18:15 | disposition home or self-care (01) ==
LOC: M SDC 13:03
PROVIDERS: ATTEND Obstetrics & Gynecology
DX: N87.0 Mild cervical dysplasia (principal); D64.9 Anemia, unspecified; F41.9 Anxiety disorder, unspecified; F32.A Depression, unspecified; G60.0 Hereditary motor and sensory neuropathy; Z79.899 Other long term (current) drug therapy; Z87.891 Personal history of nicotine dependence

== ENCOUNTER → 2023-01-13 | Outpatient (REF) | payer MEDICARE ==
[~2023-01-13] MED LIST changes: +DICY-61 PO; -DICY10CA13 PO
== END ==
LOC: M LAB REF 17:25
PROVIDERS: ATTEND Nurse Practitioner Family
DX: R30.0 Dysuria (principal)

== ENCOUNTER → 2023-03-13 | Outpatient (CLI) | payer MEDICARE, MEDICAID | LOC: M WHC 08:32 | PROVIDERS: ATTEND Nurse Practitioner Family | DX: Z12.31 Encounter for screening mammogram for malignant neoplasm of breast (principal) ==

== ENCOUNTER → 2024-08-23 | Outpatient (CLI) | payer MEDICARE, MEDICAID ==
[~2024-08-23] MED LIST changes: +FLUO-290 PO; +FLUO-365 PO; -FLUO10CA18 PO; -FLUO20CA22 PO; +GABA-1172 PO; -GABA-282 PO
== END ==
LOC: M WHC 15:57
PROVIDERS: ATTEND Nurse Practitioner Family
DX: Z12.31 Encounter for screening mammogram for malignant neoplasm of breast (principal)